=== PATIENT | female | born 1945 | race Caucasian/White ===

== ENCOUNTER 2022-12-03 20:58 | Emergency (ER) | payer MEDICARE ==
[~2022-12-03] VITALS: Ht 162.6 cm; Wt 80.7 kg
--- NOTE | 2022-12-03 21:14 | NUR ---
Dr. Carlson at bedside. MSE in progress.
[2022-12-03] MEDS ORDERED: HYDROMORPHONE 1 MG/1 ML DISP.SYRIN IM ONE (21:15)
[2022-12-03] MEDS ORDERED: PROCHLORPERAZINE MALEATE 5 MG TABLET PO ONE (21:15)
[2022-12-03] MEDS ORDERED: THIAMINE HCL 100 MG TABLET PO ONE (21:15)
[2022-12-03] MEDS ORDERED: KETOROLAC TROMETHAMINE 30 MG INJ IM ONE (21:15)
[2022-12-03] MEDS ORDERED: KETOROLAC TROMETHAMINE 30 MG INJ ONE (21:24)
[2022-12-03] MEDS ORDERED: HYDROMORPHONE 1 MG/1 ML DISP.SYRIN ONE (21:25)
[2022-12-03] MEDS ORDERED: THIAMINE HCL 100 MG TABLET ONE (21:25)
[2022-12-03] MEDS ORDERED: PROCHLORPERAZINE MALEATE 5 MG TABLET ONE (21:25)
[2022-12-03 21:42] LABS: HEMATOCRIT 34.3 % (31.2-41.9); MEAN CORPUSCULAR HEMOGLOBIN 29.5 uug (24.7-32.8); MEAN CORPUSCULAR VOLUME 89.3 fL (75.5-95.3); PLATELET COUNT (AUTO) 308 K/uL (179-408)
--- NOTE | 2022-12-03 21:55 | NUR ---
Patient taken down for CT.
[2022-12-03 21:57] LABS: CREATININE 0.8 mg/dL (0.6-1.3); MAGNESIUM 1.9 mg/dL (1.8-2.4); POTASSIUM 3.5 mmol/L (3.5-5.1)
--- NOTE | 2022-12-03 22:13 | NUR ---
Back from CT.
[2022-12-04] MEDS ORDERED: HYDR-3980 PO (01:00)
--- NOTE | 2022-12-04 01:20 | NUR ---
Patient is unable to provide 's phone number at this time. Only able to give the area code. Dr. Carlson notified.
--- NOTE | 2022-12-04 03:38 | NUR ---
Patient sleeping. NAD noted. Visible chest rises. Patient is still connected to monitor; therefore, will continue to monitor.
--- NOTE | 2022-12-04 04:05 | NUR ---
Assisted patient to restroom. Walked with a steady gait.
[2022-12-04] MEDS ORDERED: OXYCODONE/APAP 5-325 MG TABLET PO ONE (04:15)
[2022-12-04] MEDS ORDERED: KETOROLAC TROMETHAMINE 30 MG INJ IM ONE (04:15)
[2022-12-04] MEDS ORDERED: OXYCODONE/APAP 5-325 MG TABLET ONE (04:41)
[2022-12-04] MEDS ORDERED: KETOROLAC TROMETHAMINE 30 MG INJ ONE (04:41)
[2022-12-04 06:25] VITALS: BP 115/70
--- NOTE | 2022-12-04 06:26 | NUR ---
Patient discharged to home in stable condition. A/O x 3. NAD noted. Ambulatory with a steady gait. All belongings with patient. Written and verbal after care instructions given. Patient verbalizes understanding of instructions. Stressed follow up or return to ER for worsening s/s.
== END 2022-12-04 06:26 | disposition home or self-care (01) ==
LOC: ER 20:58
DX: S43.004A Unspecified dislocation of right shoulder joint, initial encounter (principal); F10.129 Alcohol abuse with intoxication, unspecified; R51.9 Headache, unspecified; M54.2 Cervicalgia; Z79.899 Other long term (current) drug therapy; W18.39XA Other fall on same level, initial encounter; Y93.89 Activity, other specified; Y92.89 Other specified places as the place of occurrence of the external cause; Y99.8 Other external cause status; Y90.8 Blood alcohol level of 240 mg/100 ml or more
CPT/HCPCS: 80048; 83735; 85025; 36415; 73030; 70450; 72125; 99285; 96372 ×3; 80320; 73020; 23650; J8499; J1885 ×2; J1170; A4663; G0480